=== PATIENT | female | born 1960 ===

== ENCOUNTER 2022-04-11 05:55 | Day surgery (SDC) | payer OTHER | END 2022-04-11 12:00 | disposition home or self-care (01) | LOC: AMB-ENDOS 05:55 → CIR.AMB 14:15 | PROVIDERS: ATTEND Surgery | DX: D12.5 Benign neoplasm of sigmoid colon (principal); K57.30 Diverticulosis of large intestine without perforation or abscess without bleeding; Z20.822 Contact with and (suspected) exposure to COVID-19; E78.5 Hyperlipidemia, unspecified; I10 Essential (primary) hypertension ==